=== PATIENT | female | born 1965 | race Caucasian/White ===

== ENCOUNTER 2022-10-04 18:35 | Emergency (ER) | payer SELFPAY ==
[~2022-10-04] VITALS: Ht 167.6 cm; Wt 73.0 kg
[2022-10-04] MEDS ORDERED: IBUPROFEN 600MG TABLET PO ONE (19:15)
[2022-10-04] MEDS ORDERED: IBUP-2029 MT (20:58)
[2022-10-04 21:05] VITALS: BP 159/55
[2022-10-04] MEDS ORDERED: IBUPROFEN 600MG TABLET PO NR (21:15)
== END 2022-10-04 21:10 | disposition home or self-care (01) ==
LOC: ER 18:35
DX: S43.491A Other sprain of right shoulder joint, initial encounter (principal); E11.9 Type 2 diabetes mellitus without complications; X50.0XXA Overexertion from strenuous movement or load, initial encounter; Y93.89 Activity, other specified; Y92.89 Other specified places as the place of occurrence of the external cause; Y99.8 Other external cause status
CPT/HCPCS: 73030; 99283; Z7610; A4565

== ENCOUNTER 2025-02-04 18:44 | Emergency (ER) | payer MEDICAID, OTHER ==
[~2025-02-04] VITALS: Ht 167.6 cm; Wt 86.0 kg
[~2025-02-04 18:44] MED LIST: IBUP-2029 MT
[2025-02-04 19:14] VITALS: O2SAT 97
[2025-02-04 20:56] VITALS: TEMP 37.1
[2025-02-04 23:53] VITALS: BP 157/87; PULSE 73; RESP 16; O2SAT 98
== END 2025-02-04 23:53 | disposition home or self-care (01) ==
LOC: ER 18:44
DX: M71.21 Synovial cyst of popliteal space [Baker], right knee (principal); E78.00 Pure hypercholesterolemia, unspecified; I10 Essential (primary) hypertension; Z98.890 Other specified postprocedural states
CPT/HCPCS: 73562; 93971; 99284